=== PATIENT | male | born 1960 | race Caucasian/White ===

== ENCOUNTER 2022-06-17 15:46 | Emergency (ER) | payer OTHER ==
[~2022-06-17] VITALS: Ht 175.3 cm; Wt 78.9 kg
[2022-06-17 16:03] VITALS: BP 123/85
[2022-06-17] MEDS ORDERED: LIDOCAINE 1% INJ 50 ML MDV IJ ONE ×3 (16:19→17:00)
--- NOTE | 2022-06-17 16:20 | NUR ---
RECEIVED PT 62 YRS MALE WALKING IN WITH MULTIPLE SKIN ABRATION AND LAUCERATION S/P FALL DOWN FROM [place] TODY AWAKE AND ALERT SKIN ABRATION IN BOTH KNEE
[2022-06-17] MEDS ORDERED: BENZOIN COMPOUND TINCT 60 ML BOTTLE ONE (16:27)
--- NOTE | 2022-06-17 16:45 | NUR ---
CLEAN WOUND DONE HAD LAUCERATION ON CHIN OPEN DONE BY ED TACH AT BED SIDE
[2022-06-17] MEDS ORDERED: BACI/NEOM/POLY B OINT PKT 1 UDPKT PACKET ONE (16:47)
[2022-06-17] MEDS ORDERED: BACI/NEOM/POLY B OINT PKT 1 UDPKT PACKET TP ONE (17:00)
--- NOTE | 2022-06-17 17:00 | NUR ---
DR. IYER AT BED SIDE FOR STUTION
[2022-06-17] MEDS ORDERED: IBUP-1955 PO (17:16)
--- NOTE | 2022-06-17 17:31 | NUR ---
Patient discharged to home in stable condition. Written and verbal after care instructions given. Patient verbalizes understanding of instruction.
== END 2022-06-17 17:39 | disposition home or self-care (01) ==
LOC: ER 15:54
DX: S01.81XA Laceration without foreign body of other part of head, initial encounter (principal); S61.211A Laceration without foreign body of left index finger without damage to nail, initial encounter; S80.212A Abrasion, left knee, initial encounter; S80.211A Abrasion, right knee, initial encounter; V19.9XXA Pedal cyclist (driver) (passenger) injured in unspecified traffic accident, initial encounter; Y93.89 Activity, other specified; Y92.89 Other specified places as the place of occurrence of the external cause; Y99.8 Other external cause status
CPT/HCPCS: 99282; 12013; J3490; A6403

== ENCOUNTER 2022-06-23 09:45 | Emergency (ER) | payer OTHER ==
[~2022-06-23] VITALS: Ht 172.7 cm; Wt 79.4 kg
[~2022-06-23 09:45] MED LIST: IBUP-1955 PO
[2022-06-23 09:55] VITALS: BP 106/82
--- NOTE | 2022-06-23 10:02 | NUR ---
DR PATEL AT BEDSIDE FOR EVAL
--- NOTE | 2022-06-23 10:28 | NUR ---
Patient discharged to home in stable condition. Written and verbal after care instructions given. Patient verbalizes understanding of instruction.
== END 2022-06-23 10:29 | disposition home or self-care (01) ==
LOC: ER 09:48
DX: Z48.02 Encounter for removal of sutures (principal); Z79.1 Long term (current) use of non-steroidal anti-inflammatories (NSAID)